=== PATIENT | male | born 1965 | race African-American/Black ===

== ENCOUNTER 2024-07-27 14:15 | Emergency (ER) | payer OTHER ==
[~2024-07-27] VITALS: Ht 177.8 cm; Wt 100.0 kg
[2024-07-27 14:16] VITALS: BP 146/89; PULSE 90; RESP 16; TEMP 97.8; O2SAT 98
[2024-07-27] MEDS ORDERED: SODIUM CHLORIDE 0.9% 1,000 ML IV ONE (14:30)
[2024-07-27] MEDS ORDERED: TETANUS, DIPHTHERIA, PERTUSSIS VAC/PF 0.5ML (>10YR OLD) IM ONE (15:00)
== END 2024-07-27 15:54 | disposition left against medical advice (07) ==
LOC: ER 14:15
DX: S00.511A Abrasion of lip, initial encounter (principal); R55 Syncope and collapse; E11.9 Type 2 diabetes mellitus without complications; E78.00 Pure hypercholesterolemia, unspecified; I10 Essential (primary) hypertension; W22.8XXA Striking against or struck by other objects, initial encounter; Y93.89 Activity, other specified; Y92.89 Other specified places as the place of occurrence of the external cause; Y99.8 Other external cause status
CPT/HCPCS: 99284; 70450; 93005; J7030